=== PATIENT | male | born 1960 | race Caucasian/White ===

== ENCOUNTER 2022-01-10 08:19 | Day surgery (SDC) | payer BC ==
[~2022-01-10 08:19] MED LIST: Lactated Ringers 1,000 ML IV SCH; Sodium Chloride 0.9% 10 ML Syringe FLUSH PRN
[2022-01-10] MEDS ORDERED: Propofol 200 MG/20 ML SDV IV ONE (08:20)
[2022-01-10] MEDS ORDERED: Labetalol 100 MG/20 ML MDV IV ONE (08:20)
== END 2022-01-10 10:16 | disposition home or self-care (01) ==
LOC: FB.SDS 08:19
PROVIDERS: ATTEND Surgery
DX: Z12.11 Encounter for screening for malignant neoplasm of colon (principal); K57.30 Diverticulosis of large intestine without perforation or abscess without bleeding; K42.9 Umbilical hernia without obstruction or gangrene; I10 Essential (primary) hypertension; E78.5 Hyperlipidemia, unspecified; Z98.890 Other specified postprocedural states; Z79.899 Other long term (current) drug therapy
CPT/HCPCS: 00812; 45378; J2704; J3490; J7120